=== PATIENT | female | born 2000 | race Caucasian/White ===

== ENCOUNTER → 2021-12-19 10:43 | Outpatient (CLI) | payer OTHER, SELFPAY ==
--- NOTE | 2021-12-19 11:14 | DI.US.S_ITS ---
PROCEDURE: US OB LIMITED INDICATIONS: DATES OUTSIDE/PRIOR DATING DATA: Last menstrual period (LMP): 09/02/2021. LMP-based estimated date of delivery (BROWN): 06/09/2022. First dating scan (date and location): 12/19/2021. Estimated date of delivery (BROWN) from first dating scan: 05/28/2022. TECHNIQUE: Real-time scanning was performed of the fetus, with image documentation. Endovaginal scanning: None COMPARISON: None. FINDINGS: A single living intrauterine gestation is present. Presentation: Vertex. Placenta: Placental position is posterior, without previa. Amniotic fluid index: 11.4 cm, normal range is 5-24 cm. heart rate: 139 beats per minute. Maternal cervical canal: 4.2 cm long. Normal lower limit is 2.5 cm. Clinically estimated gestational age: 15 week 3 day Estimated gestational age from initial scan: 17 week 1 day. BPD: 3.8 cm, 17 week 4 day HC: 13.6 cm, 17 week 0 day AC: 11.6 cm, 17 week 2 day FL: 2.2 cm, 16 week 3 day IMPRESSION: Single live intrauterine consistent with a 17 week 1 day gestation Approved by: Edgardo Adams M.D. on 12/19/2021 at 17:09
== END ==
PROVIDERS: PCP Nurse Practitioner Family; Referring Provider Obstetrics & Gynecology; Visit Provider Obstetrics & Gynecology
DX: Z36.87 Encounter for antenatal screening for uncertain dates (principal); Z3A.17 17 weeks gestation of pregnancy
CPT/HCPCS: 76815

== ENCOUNTER → 2021-12-20 11:43 | Outpatient (CLI) | payer OTHER, SELFPAY ==
[2021-12-20 12:39] LABS: Add Manual Diff / Slide Review NO; Basophils Absolute Auto 0 /uL (0-100); Basophils Percent Auto 0.6 % (0-2); Eosinophils Absolute Auto 0 /uL (0-450); Eosinophils Percent Auto 0.6 % (2-4); Lymphocytes Absolute Auto 1900 /uL (1100-4500); Lymphocytes Percent Auto 25.4 % (25-40); Mean Corpuscular HGB Conc 32.4 % (30-36); Mean Corpuscular Hemoglobin 22.4 PG (26-34); Monocytes Absolute Auto 400 /uL (0-900); Monocytes Percent Auto 5.1 % (3-14); Neutrophils Absolute Auto 5200 /uL (1500-7000); Neutrophils Percent Auto 68.3 % (50-75); Platelet Count 306 X10^3/uL (150-400); Red Blood Cell Count 4.91 X10^6/uL (4.0-5.2); Red Cell Distribution Width 16.3 % (11.6-14.8); White Blood Cell Count 7.7 X10^3/uL (4.5-11.0)
[2021-12-20 13:09] LABS: Appearance Urine UA CLEAR; Bilirubin Urine UA NEGATIVE (NEGATIVE); Color Urine UA YELLOW; Glucose Urine UA NEGATIVE (Negative); Ketones Urine UA NEGATIVE (NEGATIVE); Leukocyte Esterase Urine UA 1+ (NEGATIVE); Nitrite Urine UA NEGATIVE (Negative); Occult Blood Urine UA NEGATIVE (Negative); Protein Urine UA NEGATIVE (Negative); Urobilinogen Urine UA 0.2 E.U./dL (0.2)
[2021-12-20 13:25] LABS: Bacteria Urine Moderate (10-30); Culture Indicated Urine Specimen Cultured; RBC Urine None Seen (0-5/HPF); WBC Urine 1-5/HPF (0-5/HPF)
[2021-12-21 03:38] LABS: RPR Screen Non Reactive (Non Reactive)
[2021-12-21 12:03] LABS: Varicella IgG Antibody <135 index (Immune >165)
[2021-12-21 16:06] LABS: HIV 1 & 2 Ab/Ag 4th Gen Combo NEGATIVE (NEGATIVE); Hep C Virus Ab w/Reflex Quant NEGATIVE s/c (NEGATIVE); Hepatitis B Surface Antigen NEGATIVE s/c (NEGATIVE); Rubella Antibody IgG 14.6 IU/mL (>15)
== END ==
PROVIDERS: PCP Nurse Practitioner Family; Referring Provider Obstetrics & Gynecology; Visit Provider Obstetrics & Gynecology
DX: Z34.80 Encounter for supervision of other normal pregnancy, unspecified trimester (principal)
CPT/HCPCS: 36415; 80055; 81003; 81015; 86787; 86803; 86850; 86900; 86901; 87086; 87389

== ENCOUNTER → 2021-12-29 09:58 | Outpatient (CLI) | payer OTHER, SELFPAY ==
[2021-12-29 14:43] LABS: Urine N gonorrhoeae NOT DETECTED
[2021-12-29 16:13] LABS: Urine Chlamydia NOT DETECTED
== END ==
PROVIDERS: PCP Nurse Practitioner Family; Visit Provider Obstetrics & Gynecology
DX: Z34.82 Encounter for supervision of other normal pregnancy, second trimester (principal); Z3A.18 18 weeks gestation of pregnancy
CPT/HCPCS: 87491; 87591

== ENCOUNTER → 2022-01-16 12:05 | Outpatient (CLI) | payer OTHER, SELFPAY ==
--- NOTE | 2022-01-16 12:05 | DI.US.S_ITS ---
PROCEDURE: US OB >= 14 WEEKS FETUS INDICATIONS: Anatomy OUTSIDE/PRIOR DATING DATA: Last menstrual period (LMP): 09/02/2021. LMP-based estimated date of delivery (BROWN): 06/09/2022. First dating scan (date and location): 12/19/[address]21. [facility]. Estimated date of delivery (BROWN) from first dating scan: 05/28/2022. The calculations are made using the ultrasound BROWN of 05/28/2022. TECHNIQUE: Real-time scanning was performed of the fetus, with image documentation and biometric measurements. COMPARISON: None. FINDINGS: General: A single living intrauterine gestation is present. Presentation: Breech. Placenta: Placental position is posterior , without previa. Amniotic fluid index: 11.9 cm, normal range is 5-24 cm. heart rate: 157 beats per minute. Maternal cervical canal: 4.4 cm long. Normal lower limit is 2.5 cm. biometrics: Biparietal diameter: 4.9 cm. 20 weeks 5 days. Head circumference: 18.2 cm. 20 weeks 4 days. Abdominal circumference: 14.9 cm. 20 weeks 1 day. Femur length: 3.6 cm. 21 weeks 2 days. Gestational age from initial scan: 21 weeks 1 day. Composite gestational age from present scan: 20 weeks 5 days. Estimated weight and percentile: 369 g. 22nd percentile. Anatomic survey: Neuro: Ventricles are non-dilated at less than 10 mm. Cisterna magna is normal at 3-11 mm. Cerebellum is normal in size and morphology. Nuchal skin fold: Normal. 2.9 mm. Face: Not well seen Spine: No evidence for spina bifida. Heart: Not well seen Diaphragm: Diaphragm is intact. Stomach: Not well seen Kidneys: The renal pelvises are prominent. Cord: 3-vessel cord has orthotopic insertion. Bladder: Normal in size. Extremities: All 4 extremities identified. IMPRESSION: 1. Single live intrauterine with an estimated gestational age of 20 weeks 5 days. 2. Limited visualization of anatomy due to position, as above. 3. Estimated weight and percentile 369 g, 22nd percentile. We strive to produce accurate, complete, and clear reports of imaging services. To assist us in improving patient care, this report was composed using standard report templates and voice recognition software. Therefore, it may contain abnormal punctuation, insertions and/or omissions. Occasional wrong-word or sound-alike substitutions may occur. Though we review the report and make efforts to correct it, we do recommend that the report be read carefully in proper context to recognize any text inaccuracies. Dictated by: Francisco Young M.D. on 01/16/2022 at 16:44 Approved by: Francisco Young M.D. on 01/16/2022 at 16:53
== END ==
PROVIDERS: PCP Nurse Practitioner Family; Referring Provider Obstetrics & Gynecology; Visit Provider Obstetrics & Gynecology
DX: Z36.89 Encounter for other specified antenatal screening (principal); Z3A.20 20 weeks gestation of pregnancy
CPT/HCPCS: 76811

== ENCOUNTER 2022-11-01 12:33 | Emergency (ER) | payer OTHER, SELFPAY ==
[2022-11-01] VITALS (9 sets, daily range): BP systolic 110–121; BP diastolic 56–76; PULSE 87–99; RESP 18; TEMP 36.6; O2SAT 95–100; BMI 31.1
--- NOTE | 2022-11-01 12:45 | DI.US.S_ITS ---
PROCEDURE: US PELVIC COMPLETE INDICATIONS: BLEEDING WITH PELVIC PAIN RADIATING TO BACK TECHNIQUE: Real-time scanning was performed of the pelvic organs, with image documentation. Additional endovaginal scanning was necessary due to incomplete visualization of the adnexal and endometrial structures by transabdominal scanning. COMPARISON: None. FINDINGS: Uterus: Uterus is retroverted and normal in size at 9.0 x 3.5 x 5.7 cm. The myometrium is homogeneous. The endometrium is within normal limits. No focal uterine mass. Ovaries: The right ovary measures 2.3 x 1.6 x 2.3 cm, with a calculated ovarian volume of 4.4 cc. The left ovary measures 2.6 x 2.2 x 2.3 cm, with a calculated ovarian volume of 6.8 cc. The ovaries have a normal sonographic appearance. Less than 12 follicles can be seen in each ovary. No adnexal masses are seen. Other: No pathologic free abdominal or pelvic fluid. IMPRESSION: Negative pelvic ultrasound. We strive to produce accurate, complete, and clear reports of imaging services. To assist us in improving patient care, this report was composed using standard report templates and voice recognition software. Therefore, it may contain abnormal punctuation, insertions and/or omissions. Occasional wrong-word or sound-alike substitutions may occur. Though we review the report and make efforts to correct it, we do recommend that the report be read carefully in proper context to recognize any text inaccuracies. Dictated by: Dale Abraham M.D. on 11/01/2022 at 14:35 Approved by: Dale Abraham M.D. on 11/01/2022 at 14:36
[2022-11-01 13:23] LABS: Add Manual Diff / Slide Review NO; Basophils Absolute Auto 0 /uL (0-100); Basophils Percent Auto 0.7 % (0-2); Eosinophils Absolute Auto 0 /uL (0-450); Eosinophils Percent Auto 0.8 % (2-4); Hematocrit 32.5 % (36-46); Hemoglobin 10.4 g/dL (12.0-16.0); Lymphocytes Absolute Auto 1900 /uL (1100-4500); Lymphocytes Percent Auto 34.8 % (25-40); Mean Corpuscular Hemoglobin 21.9 PG (26-34); Mean Corpuscular Volume 68.2 fL (80-100); Monocytes Absolute Auto 200 /uL (0-900); Monocytes Percent Auto 4.5 % (3-14); Neutrophils Absolute Auto 3200 /uL (1500-7000); Neutrophils Percent Auto 59.2 % (50-75); Platelet Count 326 X10^3/uL (150-400); Red Blood Cell Count 4.76 X10^6/uL (4.0-5.2); Red Cell Distribution Width 19.6 % (11.6-14.8); White Blood Cell Count 5.5 X10^3/uL (4.5-11.0)
[2022-11-01 13:34] LABS: Alanine Aminotransferase 18 IU/L (<35); Albumin 4.2 g/dL (3.5-5.0); Albumin Globulin Ratio 1.3 (1.0-2.8); Alkaline Phosphatase 83 U/L (38-126); Aspartate Aminotransferase 18 IU/L (14-36); BUN Creatinine Ratio 10.6 (6-22); Bilirubin Total 0.3 mg/dL (0.2-1.3); Blood Urea Nitrogen 7 mg/dL (7-17); Calcium 8.7 mg/dL (8.4-10.2); Carbon Dioxide 25 mmol/L (22-32); Chloride 103 mmol/L (98-107); Estimated Glomerular Filt Rate > 60 mL/min (>60); Globulin 3.3 g/dL (1.7-4.1); Glucose 91 mg/dL (70-100); HEMOLYSIS < 15 (0-50); Potassium 3.2 mmol/L (3.4-5.1); Sodium 137 mmol/L (137-145); Total Protein 7.5 g/dL (6.3-8.2)
[2022-11-01 13:45] LABS: Hypochromasia 1+; Microcytosis 1+
[2022-11-01 13:51] LABS: HCG Quantitative /Beta subunit < 2.4 mIU/mL
--- NOTE | 2022-11-01 14:40 | ED_ITS ---
HPI - Female Genitourinary General Chief complaint: Vaginal Bleeding Stated complaint: Unsure if miscarriage, Arm pain, Cramps Time Seen by Provider: 11/01/22 13:09 Source: patient Mode of arrival: Ambulatory History of Present Illness HPI Narrative: Patient is a 22-year-old female who presents today with severe all over abdominal pain and heavy menstrual bleeding. She feels like she is a little dizzy and lightheaded when she stands up. She knows that she has some mild anemia. Her menstrual cycle is 5 days early she does not think she is but it is possible she is not on any control pills. She denies any chest pain palpitations nausea vomiting or fever. She states that she goes through a pad or tampon about every 2-3 hours it is not every hour. It is heavier than normal. She has pain all across her lower abdomen that radiates happened to her left side. Related Data Home Medications Medication Instructions Recorded Confirmed prenat.vits,brittani,vwz-qzma-caety 1 tab PO DAILY 12/20/21 12/29/21 Previous Rx's Medication Instructions Recorded fluconazole 150 mg tablet 150 mg PO Q3D 2 doses #2 tabs 12/29/21 (Diflucan) Allergies Allergy/AdvReac Type Severity Reaction Status Date / Time No Known Drug Allergies Allergy Unverified 12/29/21 09:15 Review of Systems Review of Systems ROS Unobtainable: All systems reviewed & are unremarkable except as noted in HPI and below Patient History Medical History ADD (attention deficit disorder) Family History Grandmother Diabetes mellitus Exam Initial Vital Signs Initial Vital Signs: Vital Signs Temperature 97.8 F 11/01/22 12:37 Pulse Rate 90 11/01/22 12:37 Respiratory Rate 18 11/01/22 12:37 Blood Pressure 119/56 L 11/01/22 12:37 Pulse Oximetry 100 11/01/22 12:37 Oxygen Delivery Method 11/01/22 12:37 GENERAL: Alert pleasant 22-year-old female no acute distress and in no acute distress. HEENT: Head atraumatic,EOMI, pupils reactive, face symmetric, moist mucous m embranes CARDIOVASCULAR: Regular rate and rhythm without murmurs, rubs or gallops. RESPIRATORY: Breath sounds equal bilaterally, no wheezes rales or rhonchi. ABDOMEN: Soft, lower abdominal minor tenderness no guarding no rebound : No CVA tenderness EXTREMITIES: Normal range of motion, no clubbing or edema. Neurovascularly intact NEUROLOGICAL: Alert and oriented x4. SKIN: Warm, dry, no laceration, no petechiae, no rashes or lesions. Course Orders Ordered: ED Orders 11/01/22 12:45 US pelvic complete Stat 11/01/22 13:09 Complete Blood Count AUTO DIFF Stat Comprehensive Metabolic Panel Stat HCG Quantitative /Beta subunit Stat Type and Screen Stat 11/01/22 14:48 CT abdomen pelvis w con Stat Discontinued Medications Ketorolac Tromethamine (Ketorolac 30 Mg/Ml Vial) 15 mg IV NOW ONE Stop: 11/01/22 14:49 Last Admin: 11/01/22 15:08 Dose: 15 mg Documented By: JEM Vital Signs Vital signs: Vital Signs - 8 hr 11/01/22 12:37 11/01/22 13:50 11/01/22 14:13 Temperature 97.8 F Pulse Rate 90 99 H Respiratory Rate 18 Blood Pressure 119/56 L 121/76 112/59 L Pulse Oximetry 100 100 Oxygen Delivery Method Room Air Room Air 11/01/22 14:14 11/01/22 14:30 11/01/22 14:30 Temperature Pulse Rate 92 H 92 H Respiratory Rate Blood Pressure 111/65 Pulse Oximetry 100 100 Oxygen Delivery Method Room Air Room Air 11/01/22 15:02 11/01/22 15:30 11/01/22 16:00 Temperature Pulse Rate 87 89 89 Respiratory Rate Blood Pressure Pulse Oximetry 95 100 100 Oxygen Delivery Method Room Air Room Air Room Air 11/01/22 16:30 11/01/22 16:30 Temperature Pulse Rate 89 Respiratory Rate Blood Pressure 110/67 Pulse Oximetry 100 Oxygen Delivery Method Room Air MDM - Female Genitourinary Lab Data Result diagrams: 11/01/22 13:09 11/01/22 13:09 Labs: Lab Results 11/01/22 11/01/22 11/01/22 Range/Units 13:09 13:09 13:09 WBC 5.5 (4.5-11.0) X10^3/uL RBC 4.76 (4.0-5.2) X10^6/uL Hgb 10.4 L (12.0-16.0) g/dL Hct 32.5 L (36-46) % MCV 68.2 L (80-100) fL MCH 21.9 L (26-34) PG MCHC 32.0 (30-36) % RDW 19.6 H (11.6-14.8) % Plt Count 326 (150-400) X10^3/uL Neut % (Auto) 59.2 (50-75) % Lymph % (Auto) 34.8 (25-40) % [place] % (Auto) 4.5 (3-14) % Eos % (Auto) 0.8 L (2-4) % Baso % (Auto) 0.7 (0-2) % Neut # (Auto) 3200 (3950-3958) /uL Lymph # (Auto) 1900 (1736-6025) /uL [place] # (Auto) 200 (0-900) /uL Eos # (Auto) 0 (0-450) /uL Baso # (Auto) 0 (0-100) /uL RBC Morphology Not Reportable Hypochromasia 1+ H Microcytosis 1+ H Sodium 137 (137-145) mmol/L Potassium 3.2 L (3.4-5.1) mmol/L Chloride 103 (98-107) mmol/L Carbon Dioxide 25 (22-32) mmol/L BUN 7 (7-17) mg/dL Creatinine 0.66 (0.52-1.04) mg/dL Estimated GFR > 60 (>60) mL/min BUN/Creatinine Ratio 10.6 (6-22) Glucose 91 (70-100) mg/dL Calcium 8.7 (8.4-10.2) mg/dL Total Bilirubin 0.3 (0.2-1.3) mg/dL AST 18 (14-36) IU/L ALT 18 (<35) IU/L Alkaline Phosphatase 83 (38-126) U/L Total Protein 7.5 (6.3-8.2) g/dL Albumin 4.2 (3.5-5.0) g/dL Globulin 3.3 (1.7-4.1) g/dL Albumin/Globulin Ratio 1.3 (1.0-2.8) HCG, Quant < 2.4 mIU/mL Blood Type A Positive Antibody Screen Negative Point of Care Testing Test Results Negative Urine Dip Bedside Urine Glucose Negative Bedside Urine Bilirubin - Negative Bedside Urine Ketone - Negative Urine Specific [place] 1.015 Bedside Urine Occult Blood +/- Bedside Urine pH 6.5 Bedside Urine Protein - Negative Bedside Urine Urobilinogen - Negative Bedside Urine Nitrite - Negative Bedside Urine Leukocytes - Negative Esterase Imaging Data CT scan - abdomen/pelvis: Radiologist's Impression: ?Mariajose Escoto MR#: [id number] : 2000 Acct:[id number] Age/Sex: 22 / F Date of Service: 11/01/22 Loc: ED Accession Number: [id number] ?? Procedure: CT abdomen pelvis w con Ordering Provider: Molly Sanchez D.O. PROCEDURE:? CT ABDOMEN PELVIS W CON ? INDICATIONS:? ab pain ? TECHNIQUE:? After the administration of intravenous contrast, axial sections acquired from the lung bases to the pubic symphysis.? Coronal and sagittal reformats were performed.? For radiation dose reduction, the following was used:? automated exposure control, adjustment of mA and/or kV according to patient size.? ? COMPARISON:? None. ? FINDINGS:? Image quality:? Excellent.? ? Lung bases:? Unremarkable. Heart:? No significant findings. ? ABDOMEN: Liver:? Unremarkable.? ? Gallbladder:? Is within normal limits? ? Biliary ducts:? Unremarkable.? ? Pancreas:? Unremarkable.? ? Spleen:? Unremarkable.? ? Adrenal Glands:? Unremarkable.? ? Kidneys and Ureters:? Unremarkable.? ? ? Stomach and Bowel:? Stomach, small bowel loops, and colon are unremarkable.? Appendix is within normal limits. Peritoneum:? No abnormal intraperitoneal fluid.? No free air.? ? Ventral Wall: ? No hernias.? Abdominal Nodes:? No retroperitoneal or mesenteric adenopathy by size criteria.? Multiple mildly prominent subcentimeter mesenteric and right lower quadrant lymph nodes are present. Vessels:? Aorta and inferior vena cava are normal in size.? ? PELVIS: Pelvic Organs:? Unremarkable.? ? Bladder:? Unremarkable.? ? Pelvic Nodes: No enlarged lymph nodes.? Miscellaneous: No hernias are seen. ? ? ? Bones:? Unremarkable.? IMPRESSION:? 1. Mildly prominent mesenteric lymph nodes, suggestive of mesenteric adenitis. 2. Normal appendix.? ? ? Dictated by: Dale Abraham M.D. on 11/01/2022 at 15:12 ? ? US - ORTHOPEDIC CODER: Radiologist's Impression: ?Mariajose Escoto MR#: [id number] : 2000 Acct:[id number] Age/Sex: 22 / F Date of Service: 11/01/22 Loc: ED Accession Number: [id number] ?? Procedure: US pelvic complete Ordering Provider: Molly Sanchez D.O. PROCEDURE:? US PELVIC COMPLETE ? INDICATIONS:? BLEEDING WITH PELVIC PAIN RADIATING TO BACK ? TECHNIQUE:? Real-time scanning was performed of the pelvic organs, with image documentation.? Additional endovaginal scanning was necessary due to incomplete visualization of the adnexal and endometrial structures by transabdominal scanning.? ? COMPARISON:? None. ? FINDINGS:? ?? Uterus:? Uterus is retroverted and normal in size at 9.0 x 3.5 x 5.7 cm. The taty metrium is homogeneous. ? The endometrium is within normal limits.? No focal uterine mass. ? Ovaries:? The right ovary measures 2.3 x 1.6 x 2.3 cm, with a calculated ovarian volume of 4.4 cc. The left ovary measures 2.6 x 2.2 x 2.3 cm, with a calculated ovarian volume of 6.8 cc. The ovaries have a normal sonographic appearance. Less than 12 follicles can be seen in each ovary.? No adnexal masses are seen. ? Other:? No pathologic free abdominal or pelvic fluid. ? ? IMPRESSION:? Negative pelvic ultrasound. ? ? We strive to produce accurate, complete, and clear reports of imaging services. To assist us in improving patient care, this report was composed using standard report templates and voice recognition software. Therefore, it may contain abnormal punctuation, insertions and/or omissions. Occasional wrong-word or sound-alike substitutions may occur. Though we review the report and make efforts to correct it, we do recommend that the report be read carefully in proper context to recognize any text inaccuracies. ? ? Dictated by: Dale Abraham M.D. on 11/01/2022 at 14:35 ? ? Approved by: Dale Abraham M.D. on 11/01/2022 at 14:36 ? MDM Narrative Medical decision making narrative: Patient is a 22-year-old female who presents with abdominal pain and heavy menstrual cycle. She is found have mildly low potassium 3.2 hemoglobin 10.4 hematocrit 32.5 no other looks really abnormalities. She is not both hCG and POC urine are negative. Ultrasound does not show any abnormality such as ovarian torsion or cyst. She continued to have pain so CT was ordered which does show mesenteric adenitis but no sign of nephrolithiasis appendicitis or diverticulitis. She has no fever or leukocytosis. At this time mesenteric adenitis can be treated supportively. Vitals are stable. I anticipate the menstrual bleeding will decrease she says that the blood varies in the amounts Multiple etiologies for patient's symptoms considered including, but not limited to: Ectopic although is negative ovarian torsion, appendicitis bowel obstruction diverticulitis nephrolithiasis Prior Charts reviewed: Labs reviewed and interpreted by myself: Imaging reviewed: Consultations: None Patient's symptoms improved over duration of stay with above-stated therapies. -she received Toradol which improved pain Findings and discharge diagnosis discussed with patient/family followed by verbalization of understanding Return precautions discussed with patient/family whom verbalize understanding of diagnosis and plan Discharge Plan Departure Patient Disposition: Home Clinical Impression: Mesenteric adenitis, Abnormal bleeding in menstrual cycle Instructions: DI for Vaginal Bleeding, DI for Mesenteric Adenitis-Adult Activity Restrictions/Additional Instructions: *You have been diagnosed with mesenteric adenitis, vaginal bleeding *What to do: I believe the vaginal bleeding is likely your regular menstrual cycle just slightly abnormal this month. Her abdominal pain is possibly from what is called mesenteric adenitis which is inflamed lymph nodes. At this time supportive care only no need for antibiotics. *Continue to take medications as directed Tylenol 1000 mg every 6 hours if needed for kwdx-rs-gjovjnwj pain Ibuprofen 600 mg every 6 8 hours if needed for xwdy-ib-mkrjlwks pain *Follow up with your primary care provider in 2-3 days or call [phone] *Return to ER if you should have persistent pain, vaginal bleeding more than 2 super pads or tampons in 1 hour, dizziness lightheadedness passing or any new, worsening or concerning symptoms Prescriptions: No Action prenat.vits,brittani,szo-dpex-gyuoz Tablet 1 tab PO DAILY fluconazole [Diflucan] 150 mg tablet 150 mg PO Q3D Qty: 2 6RF Rx Instructions: may repeat second dose 72 hrs after first dose if symptoms persist Referrals: Gladys Roth ARNP [Primary Care Provider] - Stand Alone Forms: Patient Portal/API
--- NOTE | 2022-11-01 14:48 | DI.CT.S_ITS ---
PROCEDURE: CT ABDOMEN PELVIS W CON INDICATIONS: ab pain TECHNIQUE: After the administration of intravenous contrast, axial sections acquired from the lung bases to the pubic symphysis. Coronal and sagittal reformats were performed. For radiation dose reduction, the following was used: automated exposure control, adjustment of mA and/or kV according to patient size. COMPARISON: None. FINDINGS: Image quality: Excellent. Lung bases: Unremarkable. Heart: No significant findings. ABDOMEN: Liver: Unremarkable. Gallbladder: Is within normal limits Biliary ducts: Unremarkable. Pancreas: Unremarkable. Spleen: Unremarkable. Adrenal Glands: Unremarkable. Kidneys and Ureters: Unremarkable. Stomach and Bowel: Stomach, small bowel loops, and colon are unremarkable. Appendix is within normal limits. Peritoneum: No abnormal intraperitoneal fluid. No free air. Ventral Wall: No hernias. Abdominal Nodes: No retroperitoneal or mesenteric adenopathy by size criteria. Multiple mildly prominent subcentimeter mesenteric and right lower quadrant lymph nodes are present. Vessels: Aorta and inferior vena cava are normal in size. PELVIS: Pelvic Organs: Unremarkable. Bladder: Unremarkable. Pelvic Nodes: No enlarged lymph nodes. Miscellaneous: No hernias are seen. Bones: Unremarkable. IMPRESSION: 1. Mildly prominent mesenteric lymph nodes, suggestive of mesenteric adenitis. 2. Normal appendix. Dictated by: Dale Abraham M.D. on 11/01/2022 at 15:12 Approved by: Dale Abraham M.D. on 11/01/2022 at 15:14
[2022-11-01] MEDS: KETOROLAC 30 MG/ML VIAL 15 MG IV (15:08)
== END 2022-11-01 16:35 | disposition home or self-care (01) ==
PROVIDERS: Emergency Provider Emergency Medicine; PCP Nurse Practitioner Family
DX: I88.0 Nonspecific mesenteric lymphadenitis (principal); N93.9 Abnormal uterine and vaginal bleeding, unspecified
CPT/HCPCS: 36415; 74177; 76856; 80053; 81003; 81025; 84702; 85025; 86850; 86900; 86901; 96374; 99284; J1885; Q9967